=== PATIENT | female | born 1995 | race Caucasian/White ===

== ENCOUNTER 2020-01-03 22:17 | Emergency (ER) | payer MEDICARE, MEDICAID, SELFPAY ==
[2020-01-03 22:18] VITALS: BP 152/96; PULSE 110; RESP 18; TEMP 37.3; O2SAT 100
--- NOTE | 2020-01-03 22:42 | ED.ALLEREA ---
HPI - Allergic Reaction General Chief complaint: Allergic Reaction Stated complaint: ALLERGIC REACTION Time Seen by Provider: 01/03/20 22:24 History of Present Illness HPI narrative: Facial rash since this afternoon. Started with itching in the right ear and spread quickly across the right side of her face. The rash is raised, red, itchy, and grubbs to the touch. She never had this before and is not aware of any allergies or new exposures. She tried benadryl without improvment. Related Data Home Medications Medication Instructions Recorded Confirmed No Home Medications 01/03/20 01/03/20 Allergies Allergy/AdvReac Type Severity Reaction Status Date / Time No Known Allergies Verified 01/03/20 22:22 Review of Systems Review of Systems: All systems reviewed & are unremarkable except as noted in HPI and below PMFSH Social History Social History (Updated 01/04/20 @ 04:35 by Cholo Howe MD) Smoking status: Never smoker Exam Const: General: no acute distress and alert Orientation/consciousness: patient oriented x3 HENMT: Ears: TM's normal bilaterally and EAC's normal Other: contiguous raised mildly erythematous rash to the right side of the face with minimal extension into the hair, beyond midline, and down the neck. Warm to touch Eyes: Conjunctivae: conjunctivae normal Pupils: Equal, round and reactive pupils present EOM: EOMs intact bilaterally Resp: Effort & Inspection: normal respiratory effort Auscultation: clear to auscultation bilaterally Cardio: Rate: regular rate Rhythm: regular rhythm Skin: Other: See HEENT Neuro: General: patient oriented x3, moves all extremities, no focal motor deficits and CN's II-XI intact bilaterally Course Vital Signs Vital signs: Vital Signs Temperature 37.3 C 01/03/20 22:18 Pulse Rate 110 H 01/03/20 22:18 Respiratory Rate 18 01/03/20 22:18 Blood Pressure 152/96 H 01/03/20 22:18 Pulse Oximetry 100 01/03/20 22:18 Temperature 37.3 C 01/03/20 22:18 Pulse Rate 113 H 01/04/20 00:11 Respiratory Rate 18 01/04/20 00:11 Blood Pressure 142/94 H 01/04/20 00:11 Pulse Oximetry 100 01/04/20 00:11 MDM - Allergic Reaction MDM Narrative Medical decision making narrative: History sounds more consistent with allergic reaction. Exam is fairly nonspecific. Attempted IM epinephrine with little response. I would still favor allergy over infection, but given the lack of response and nonspecific appearance I will treat for both allergic reaction and cellulitis. Discharge Plan Discharge Clinical Impression: Facial rash Patient Disposition: Home, Self-Care Condition: Stable Instructions: Acute Rash (ED) Prescriptions: New cephalexin [Keflex] 500 mg capsule 500 mg PO Q8H Qty: 21 RF: 0 prednisone 20 mg tablet 20 mg PO DAILY 4 Days Qty: 4 RF: 0 No Action No Home Medications RF: 0 Follow-up/Referrals: PHYSICIAN NOT ON STAFF,NONSTAFF [Primary Care Provider] - Discharge Date/Time: 01/04/20 00:12
[2020-01-03] MEDS: EPINEPHrine HCL INJ 1 MG/ML AMPUL 0.5 MG IM (22:51)
--- NOTE | 2020-01-03 23:02 | PC.NURSE ---
Assumed care of pt at this time. Report from JOSE Botello
[2020-01-03 23:16] VITALS: BP 161/118; PULSE 99; RESP 16; O2SAT 99
[2020-01-03] MEDS: CEPHALEXIN 500 MG CAPSULE PO (23:43)
[2020-01-03] MEDS: predniSONE 20 MG TABLET 40 MG PO (23:43)
[2020-01-04 00:11] VITALS: BP 142/94; PULSE 113; RESP 18; O2SAT 100
== END 2020-01-04 00:12 | disposition home or self-care (01) ==
PROVIDERS: Emergency Provider Emergency Medicine
DX: R21 Rash and other nonspecific skin eruption (principal)
CPT/HCPCS: 96372; 99283; A9270; J0171; J7512